=== PATIENT | female | born 2000 | race Asian ===

== ENCOUNTER 2021-02-25 21:28 | Emergency (ER) | payer MEDICAID ==
[~2021-02-25] VITALS: Ht 162.6 cm; Wt 90.9 kg
[~2021-02-25 21:28] MED LIST: ALBUTEROL0.09 MG/A1 IH; AMOXICILLI400 MG/51 PO; AUGMENTIN 400100 ML PO; NO HOME MEDICATIONS; ZITHROMAX200 MG/5 M PO
[2021-02-25 22:23] VITALS: BP 117/94; PULSE 70; TEMP 98.9
== END 2021-02-25 22:23 | disposition home or self-care (01) ==
LOC: COL.ER 21:28
DX: S99.922A Unspecified injury of left foot, initial encounter (principal); W20.8XXA Other cause of strike by thrown, projected or falling object, initial encounter

== ENCOUNTER 2021-05-02 08:58 | Emergency (ER) | payer MEDICAID ==
[~2021-05-02] VITALS: Ht 162.6 cm; Wt 90.9 kg
[2021-05-02 09:04] VITALS: TEMP 99
[2021-05-02 09:33] LABS: STREP SCREEN NEGATIVE
[2021-05-02 10:40] VITALS: BP 127/81; PULSE 88
== END 2021-05-02 10:48 | disposition home or self-care (01) ==
LOC: COL.ER 08:58
PROVIDERS: Personal Emergency Response Attendant
DX: J02.8 Acute pharyngitis due to other specified organisms (principal); Z20.822 Contact with and (suspected) exposure to COVID-19

== ENCOUNTER 2021-05-03 20:50 | Emergency (ER) | payer MEDICAID ==
[~2021-05-03] VITALS: Ht 162.6 cm; Wt 90.9 kg
[2021-05-03 22:19] VITALS: BP 129/82; TEMP 99.8
[2021-05-03 23:00] VITALS: PULSE 107
== END 2021-05-03 23:00 | disposition home or self-care (01) ==
LOC: COL.ER 20:50
DX: J06.9 Acute upper respiratory infection, unspecified (principal); J02.9 Acute pharyngitis, unspecified